=== PATIENT | male | born 1980 | race Caucasian/White ===

== ENCOUNTER → 2024-11-17 | Outpatient (CLI) | payer SELFPAY ==
--- NOTE | 2024-11-17 13:18 | CA ---
Stress Echo Report Juan Manuel Colon Age: 44 Gender: M : 1980 Exam Date: 11/17/2024 10:47 Exam Location: [facility] Ht (in): 68 Wt (lb): 196 Ordering Physician: Alvaro Ho MD Referring Physician: MARILIN,, Synthetic Staple Extruder: Vaibhav Torrez RDCS Technologist Procedure CPT: Indication: R07.9 CHEST PAIN ICD-9 Codes: Rhythm: Patient History: CHEST PAIN, PALPITATIONS, HTN, NUMBNESS IN FACE/NECK, FAMILY HX OF HEART DISEASE, FORMER SMOKER Cardiac Medications: VALSARTAN,,,,, Medications in past 24 hours: Contrast: Stress Results Protocol: Sourav Total dose(mL): Exercise Duration (min:sec): 11:[address] Depression (mm): Angina Score: Self Score: METS: 12.1 Resting HR: 82 Resting BP: 121 / 76 Peak HR: 178 Peak BP: 188 / 86 Max Predicted HR: 174 102 % Max Predicted HR Target HR: 148 Double Product: [id number] Stress Summary: The patient's target heart rate was achieved BP Response: Reason for Termination: MAX EXERTION/TARGET HR Cardiac Symptoms: NO SYMPTOMS ECG Analysis Resting ECG: Normal sinus rhythm, normal ECG Stress ECG: No abnormal ST/T wave changes with exercise Arrhythmia: None Echo Analysis Resting Echo: Normal resting echocardiogram. Peak Echo Analysis: Normal wall thickening and motion with decrease in the cavity size MEASUREMENTS (Male/Female) Normal Values CONCLUSIONS No ECG evidence of ischemia with exercise. Normal treadmill stress echocardiogram. Dr. Elizabeth Herrera MD (Electronically Signed) Final Date: 17 November 2024 13:18
== END | disposition home or self-care (01) ==
LOC: RADNMMAIN 09:49
PROVIDERS: ATTEND Internal Medicine
DX: R07.9 Chest pain, unspecified (principal); Z82.49 Family history of ischemic heart disease and other diseases of the circulatory system; Z87.891 Personal history of nicotine dependence
CPT/HCPCS: 93351